=== PATIENT | female | born 1980 | race Caucasian/White ===

== ENCOUNTER 2019-03-08 16:35 | Emergency (ER) | payer MEDICAID, OTHER ==
[~2019-03-08] VITALS: Ht 172.7 cm; Wt 104.5 kg
[~2019-03-08 16:35] MED LIST: niCARDipine in NS 40mg/200ml (0.2mg/ml) IVPB IV ONE
[2019-03-08] MEDS ORDERED: niCARDipine-NS 40mg/200ml IVPB 200 ML IV SCH (16:49)
[2019-03-08 16:55] LABS: BASOPHILS # (AUTO) 0.2 X10'3 (0-0.2); BASOPHILS % (AUTO) 1.7 % (0-1); EOSINOPHILS # (AUTO) 0.1 X10'3 (0-0.9); EOSINOPHILS % (AUTO) 1.2 % (0-6); HEMOGLOBIN 11.3 g/dl (12.0-16.0); LYMPHOCYTES # (AUTO) 2.1 X10'3 (1.1-4.8); LYMPHOCYTES % (AUTO) 22.9 % (21-51); MEAN CORPUSCULAR HEMOGLOBIN 20.5 PG (27.0-31.0); MEAN CORPUSCULAR HGB CONC 31.3 g/dL (33.0-36.5); MEAN CORPUSCULAR VOLUME 65.6 FL (78-98); MEAN PLATELET VOLUME 8.1 FL (7.4-10.4); MONOCYTES # (AUTO) 0.8 X10'3 (0-0.9); MONOCYTES % (AUTO) 9.2 % (2-12); PLATELET COUNT 406 X10'3 (140-440); RED CELL DISTRIBUTION WIDTH 19.9 % (11.5-14.5); WHITE BLOOD COUNT 9.3 X10'3 (4.5-11.0)
[2019-03-08 17:07] LABS: PARTIAL THROMBOPLASTIN TIME 26 SECONDS (22-32)
[2019-03-08 17:08] LABS: HYPOCHROMASIA 2+; PLATELET ESTIMATE NORMAL; POLYCHROMASIA 1+
[2019-03-08 17:09] LABS: ALANINE AMINOTRANSFERASE 187 U/L (12-78); ALBUMIN 4.3 G/DL (3.4-5.0); ALKALINE PHOSPHATASE 109 IU/L (46-116); ANION GAP 16 (8-16); ANISOCYTOSIS 2+; ASPARTATE AMINO TRANSFERASE 164 U/L (10-37); BILIRUBIN,TOTAL 1.1 MG/DL (0.1-1.0); BLOOD UREA NITROGEN 7 MG/DL (7-18); BUN/CREATININE RATIO 6.8 (6.6-38.0); CALCIUM 9.8 MG/DL (8.5-10.1); CHLORIDE 100 MMOL/L (99-107); CREATININE 1.03 MG/DL (0.40-0.90); GLUCOSE 129 MG/DL (70-104); MICROCYTOSIS 2+; POTASSIUM 3.1 MMOL/L (3.5-5.1); SODIUM 141 MMOL/L (135-145); TOTAL PROTEIN 8.8 G/DL (6.4-8.2); eGFR 59 ML/MIN
[2019-03-08 17:13] LABS: TROPONIN I < 0.04 NG/ML (0.0-0.05)
[2019-03-08 17:25] VITALS: BP 160/79
== END 2019-03-08 17:49 | disposition short-term general hospital (02) ==
LOC: ER 16:36
DX: I62.9 Nontraumatic intracranial hemorrhage, unspecified (principal); I10 Essential (primary) hypertension
CPT/HCPCS: 36415; 70450; 71045; 80053; 82948; 84484; 85025; 85610; 85730; 96365; 99284; 99285

== ENCOUNTER 2022-08-06 18:45 | Emergency (ER) | payer MEDICAID, OTHER ==
[~2022-08-06] VITALS: Ht 170.2 cm; Wt 136.4 kg
[2022-08-06 19:38] LABS: BASOPHILS # (AUTO) 0.1 X10'3 (0-0.2); BASOPHILS % (AUTO) 1.1 % (0-1); EOSINOPHILS # (AUTO) 0.2 X10'3 (0-0.9); EOSINOPHILS % (AUTO) 1.9 % (0-6); LYMPHOCYTES # (AUTO) 1.4 X10'3 (1.1-4.8); LYMPHOCYTES % (AUTO) 17.5 % (21-51); MEAN CORPUSCULAR HEMOGLOBIN 16.6 PG (27.0-31.0); MEAN CORPUSCULAR HGB CONC 28.6 g/dL (33.0-36.5); MEAN CORPUSCULAR VOLUME 57.9 FL (78-98); MONOCYTES # (AUTO) 0.6 X10'3 (0-0.9); MONOCYTES % (AUTO) 7.6 % (2-12); NEUTROPHILS # (AUTO) 5.7 X10'3 (1.8-7.7); NEUTROPHILS % (AUTO) 71.9 % (42-75); PLATELET COUNT 363 X10'3 (140-440); RED BLOOD COUNT 3.61 X10'6 (4.20-5.60); RED CELL DISTRIBUTION WIDTH 21.1 % (11.5-14.5); WHITE BLOOD COUNT 7.9 X10'3 (4.5-11.0)
[2022-08-06 19:46] LABS: HEMATOCRIT 20.9 % (35.0-45.0)
[2022-08-06 19:53] LABS: ALANINE AMINOTRANSFERASE 65 U/L (12-78); ALBUMIN 3.3 G/DL (3.4-5.0); ALBUMIN/GLOBULIN RATIO 0.9 (1.1-1.5); ALKALINE PHOSPHATASE 90 IU/L (46-116); ANION GAP 11 (8-16); ASPARTATE AMINO TRANSFERASE 53 U/L (10-37); BILIRUBIN,TOTAL 0.5 MG/DL (0.1-1.0); BLOOD UREA NITROGEN 6 MG/DL (7-18); BUN/CREATININE RATIO 6.5 (10.0-20.0); CALCIUM 8.9 MG/DL (8.5-10.1); CHLORIDE 104 MMOL/L (99-107); CREATININE 0.92 MG/DL (0.40-0.90); GLUCOSE 112 MG/DL (70-104); POTASSIUM 3.5 MMOL/L (3.5-5.1); SODIUM 138 MMOL/L (135-145); TOTAL CARBON DIOXIDE 22.8 MMOL/L (24-32); eGFR 67 ML/MIN
[2022-08-06 21:23] LABS: ANISOCYTOSIS 3+; HYPOCHROMASIA 2+; PLATELET ESTIMATE NORMAL
[2022-08-06 21:24] LABS: MICROCYTOSIS 3+
[2022-08-06] MEDS ORDERED: NALT50TA PO (21:28)
[2022-08-06] MEDS ORDERED: GABA-530 PO (21:28)
[2022-08-06] MEDS ORDERED: ATOR-2 PO (21:28)
[2022-08-06] MEDS ORDERED: LOSA50TA64 PO (21:28)
[2022-08-06] MEDS ORDERED: AMLO-708 PO (21:28)
[2022-08-06] MEDS ORDERED: BACL10TA2 PO (21:28)
[2022-08-06] MEDS ORDERED: METO25TA6 PO (21:28)
[2022-08-06] MEDS ORDERED: LORA10TA7 PO (21:28)
[2022-08-06 23:35] VITALS: BP 131/81
[2022-08-06 23:52] VITALS: BP 130/71
[2022-08-07 01:03] VITALS: BP 133/74
[2022-08-07 01:33] LABS: HEMOGLOBIN 7.3 g/dl (12.0-16.0); MEAN CORPUSCULAR HEMOGLOBIN 18.5 PG (27.0-31.0); MEAN CORPUSCULAR HGB CONC 30.5 g/dL (33.0-36.5); MEAN CORPUSCULAR VOLUME 60.8 FL (78-98); MEAN PLATELET VOLUME 8.5 FL (7.4-10.4); PLATELET COUNT 387 X10'3 (140-440); RED BLOOD COUNT 3.95 X10'6 (4.20-5.60); RED CELL DISTRIBUTION WIDTH 23.6 % (11.5-14.5)
[2022-08-07 02:19] VITALS: BP 138/72
== END 2022-08-07 02:20 | disposition home or self-care (01) ==
LOC: ER 18:46
DX: D64.9 Anemia, unspecified (principal); I10 Essential (primary) hypertension; Z88.5 Allergy status to narcotic agent; Z91.09 Other allergy status, other than to drugs and biological substances
CPT/HCPCS: 36415; 36430; 80053; 85008; 85025; 85027; 86885; 86900; 86901; 86920; 99285; J7040; P9016